=== PATIENT | male | born 1985 | race Caucasian/White ===

== ENCOUNTER 2017-06-01 07:17 | Emergency (ER) | payer MEDICAID ==
--- NOTE | 2017-06-01 07:21 | ED Physician Documentation ---
PD HPI LOWER EXT INJURY - Stated complaint Stated Complaint: L FOOT LAC - History obtained from History obtained from: Patient - History of Present Illness PD HPI LOW EXT INJURY LOCATION: Left, Foot (top of foot proximal to great toe MTP. Pain and weakness for great toe extension.) Type of injury: Laceration (from sheet metal edge, struck top of foot.) Where injury occurred: Home Timing - onset: Last night (he has had dressing on it overnight.) Timing - details: Abrupt onset Worsened by: Moving (hurt for great toe movement.) Associated symptoms: Weakness (for extension of the great toe). No: Numbness, Tingling, Swelling Contributing factors: No: Prior ortho surgery Similar symptoms before: Has not had sx before Recently seen: Not recently seen Review of Systems Constitutional: denies: Fever, Chills Nose: denies: Rhinorrhea / runny nose, Congestion Respiratory: denies: Dyspnea, Cough GI: denies: Vomiting, Diarrhea Endocrine: denies: Easy bruising / bleeding PD PAST MEDICAL HISTORY - Past Medical History Cardiovascular: None Respiratory: None Endocrine/Autoimmune: None - Past Surgical History Past Surgical History: No - Present Medications Home Medications: Ambulatory Orders Medication Instructions Recorded Confirmed Cephalexin [Keflex] 500 mg PO QID #24 capsule 06/01/17 HYDROcod/ACETAM 5/325 [[place] 5/325] 1 tab PO Q6H PRN #15 tablet 06/01/17 - Allergies Allergies/Adverse Reactions: Allergies Allergy/AdvReac Type Severity Reaction Status Date / Time No Known Drug Allergies Allergy Verified 08/09/14 16:59 - Social History Does the pt smoke?: No Smoking Status: Never smoker Does the pt drink ETOH?: No Does the pt have substance abuse?: No - Immunizations Immunizations are current?: Yes PD ED PE NORMAL - Vitals Vital signs reviewed: Yes - General General: Alert and oriented X 3, Well developed/nourished, Other (somewhat anxious) - Derm Derm: Normal color, Warm and dry - Extremities Extremities: Other (dorsum of foot proximal to the great toe MTP has v shaped laceration which does cut through the extensor tendon to the great toe. Distal end of the tendon is visible, proximal end is back under skin flap and not easily seen. No FB nor current bleeding. with local anesth, wound cleansed and then can be seen better with complete laceration of the extensor tendon to the great toe. Will consult Ortho. ) - Neuro Neuro: Alert and oriented X 3, No sensory deficit, Normal speech Results - Vitals Vitals: Vital Signs - 24 hr 06/01/17 10:30 Heart Rate 68 Respiratory 17 Rate Blood Pressure 156/84 H O2 Saturation 99 Oxygen O2 Source Room air PD MEDICAL DECISION MAKING - ED course Complexity details: considered differential (foot lac with tendon lac of to great toe. Will have Ortho come to help with repair. Patient had tetanus booster 5-6 months ago. He has not had anything to eat nor drink since last evening. ), d/w patient, d/w library consultant (Dr. Box, who will come in and see the patient. See his separate procedure note. ) Departure - Departure Disposition: 01 Home, Self Care Clinical Impression: Foot laceration involving tendon Qualifiers: Encounter type: initial encounter Laterality: left Qualified Code(s): S91.312A - Laceration without foreign body, left foot, initial encounter Condition: Stable Record reviewed to determine appropriate education?: Yes Instructions: ED Laceration Tendon Follow-Up: Shay Box MD [Provider Admit Priv/Credential] - Prescriptions: Cephalexin [Keflex] 500 mg PO QID #24 capsule HYDROcod/ACETAM 5/325 [[place] 5/325] 1 tab PO Q6H PRN #15 tablet PRN Reason: Pain Comments: Splint for the foot and toe and crutches as directed by Dr. Box. Cephalexin as directed to reduce chance of infection. Tylenol or ibuprofen if needed for pain and add hydrocodone if needed. Follow-up with Dr. Box or orthopedic office at his direction. Discharge Date/Time: 06/01/17 10:55
[2017-06-01] MEDS ORDERED: BUPIVACAINE 0.5% PF 30 ML VIAL SUBQ STA (08:58)
[2017-06-01] MEDS ORDERED: BUPIVACAINE 0.5% PF 30 ML VIAL ONE (09:13)
--- NOTE | 2017-06-01 10:24 | PROVIDER PROGRESS NOTE ---
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 Objective - Vital Signs/Intake & Output Vital Signs: Vital Signs x48h Temp Pulse Resp BP Pulse Ox 06/01/17 07:21 36.8 C 92 19 161/88 H 98 - Other Results/Comments Other Results/Comments: EXAM: 3 cm dorsal medial skin laceration of left foot with a proximally based flap. Able to weakly extend great toe MTP joint actively. Able to see the great toe extensor tendon laceration in wound. Assessment/Plan - Problem List (1) Laceration of toe involving extensor tendon Qualifiers: Encounter type: initial encounter Qualified Code(s): S91.119A - Laceration without foreign body of unspecified toe without damage to nail, initial encounter; S96.129A - Laceration of muscle and tendon of long extensor muscle of toe at ankle and foot level, unspecified foot, initial encounter
[2017-06-01 10:31] VITALS: BP 156/84
[2017-06-01] MEDS ORDERED: CEPHALEXIN 250 MG CAPSULE PO STA (10:50)
--- NOTE | 2017-06-01 11:02 | CONSULTATION NOTE ---
DATE OF CONSULTATION: 06/01/2017 00:00:00 REQUESTING PROVIDER: Dr. Gore in the emergency room department. 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 He noted a skin laceration. This morning as he attempted to move his great toe. He had painful exten kimberly of the toe. He was taken to the emergency room, where he had his foot injury evaluated. No prior problems with his foot or toe. PHYSICAL EXAMINATION: The patient has a curved incision over the dorsal medial aspect of his left mid foot, with a proximal base flap noted. The flap itself appeared viable. The patient neurovascularly was noted to be intact distally over the dorsum of his foot and the plantar aspect. Exploration of hi s wound did show what appeared to be an extensor tendon laceration of the great toe. PROCEDURE: After local skin anesthesia was done with 0.5% Marcaine and 1% lidocaine in a 1:1 ratio, t he patient stated it was less painful. He was able to actively extend the toe. After skin preparation , we proceeded to do a repair of his extensor tendon laceration, putting a horizontal mattress stitch to reappose the ends of his tendon laceration. Afterwards, the skin was closed with 4-0 nylon suture . The repair of the extensor tendon was done with 3-0 Polysorb suture. Afterwards, the wounds were cl eansed and a dressing applied. The patient was then placed in a short-leg posterior splint with exten kimberly of the great toe to keep the toe from flexing at the MTP joint. ASSESSMENT: Left dorsal foot laceration involving extensor tendon laceration of the great toe - david christie repaired in the emergency room. PLAN: The patient will be given a short course of antibiotics and pain medication as needed. He will need to keep the toe in extension at the MTP joint for approximately 3-4 weeks total. The patient pako l follow up in the orthopedic clinic in about 10 days for a wound check, suture removal, and reapplic ation of the extension splint to the toe to prevent MTP joint flexion. 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 He may need to be off of work for the duration of immobilization of the great toe to all ow the extensor tendon to heal. JOB #: [id number] EXT JOB #:[id number]
== END 2017-06-01 10:55 | disposition home or self-care (01) ==
LOC: ED 07:17
DX: S96.122A Laceration of muscle and tendon of long extensor muscle of toe at ankle and foot level, left foot, initial encounter (principal); W22.8XXA Striking against or struck by other objects, initial encounter; Y92.008 Other place in unspecified non-institutional (private) residence as the place of occurrence of the external cause
CPT/HCPCS: 28208; 99283